=== PATIENT | male | born 1985 | race African-American/Black ===

== ENCOUNTER 2016-11-20 14:19 | Inpatient (IN) | payer OTHER ==
[2016-11-20 16:15] VITALS: BMI 27.1
--- NOTE | 2016-11-20 17:31 | HP ---
CIWA Score - CIWA Score Nausea/Vomitin-Mild Nausea/No Vomiting Muscle Tremors: 4-Moderate,w/Arms Extend Anxiety: 4-Mod. Anxious/Guarded Agitation: 4-Moderately Restless Paroxysmal Sweats: 2 Orientation: 0-Oriented Tacttile Disturbances: 0-None Auditory Disturbances: 0-None Visual Disturbances: 0-None Headache: 3-Moderate CIWA-Ar Total Score: 18 Admission ROS BHS - HPI Chief Complaint: withdrawal sx Allergies/Adverse Reactions: Allergies Allergy/AdvReac Type Severity Reaction Status Date / Time No Known Allergies Allergy Verified 11/20/16 17:29 History of Present Illness: 31years old male with long history of alcohol nicotine dependence denies medical issue had depression feel hoplessness helplessness overwhelmed is admitted to detox Exam Limitations: No Limitations - Ebola screening Have you traveled outside of the country in the last 21 days: No Have you had contact with anyone from an Ebola affected area: No Have you been sick,other than usual withdrawal symptoms: No Do you have a fever: No - Review of Systems Constitutional: Chills, Loss of Appetite, Changes in sleep, Unintentional Wgt. Loss EENT: reports: No Symptoms Reported Respiratory: reports: No Symptoms reported Cardiac: reports: No Symptoms Reported GI: reports: Poor Appetite, Poor Fluid Intake, Abdominal cramping : reports: No Symptoms Reported Musculoskeletal: reports: No Symptoms Reported Integumentary: reports: No Symptoms Reported Neuro: reports: Tremors Endocrine: reports: No Symptoms Reported Hematology: reports: No Symptoms Reported Psychiatric: reports: Judgement Intact, Orientated x3, Depressed Other Systems: Reviewed and Negative Patient History - Patient Medical History Hx Anemia: No Hx Asthma: No Hx Chronic Obstructive Pulmonary Disease (COPD): No Hx Cancer: No Hx Cardiac Disorders: No Hx Congestive Heart Failure: No Hx Hypertension: No Hx Hypercholesterolemia: No Hx Pacemaker: No HX Cerebrovascular Accident: No Hx Seizures: No Hx Dementia: No Hx Diabetes: No Hx Gastrointestinal Disorders: No Hx Liver Disease: No Hx Genitourinary Disorders: No Hx Sexually Transmitted Disorders: No Hx Renal Disease (ESRD): No Hx Thyroid Disease: No Hx Human Immunodeficiency Virus (HIV): No Hx Hepatitis C: No Hx Depression: Yes Hx Suicide Attempt: No Hx Bipolar Disorder: No Hx Schizophrenia: No - Patient Surgical History Past Surgical History: No - PPD History Previous Implant?: Yes Documented Results: Negative w/o proof Implanted On Prior [facility] Admission?: No PPD to be Administered?: Yes - Smoking Cessation Smoking history: Current every day smoker Have you smoked in the past 12 months: Yes Aproximately how many cigarettes per day: 10 Cigars Per Day: 0 Hx Chewing Tobacco Use: No Initiated information on smoking cessation: Yes 'Breaking Loose' booklet given: 11/20/16 - Substance & Tx. History Hx Alcohol Use: Yes Hx Substance Use: Yes Substance Use Type: Alcohol, Cocaine, Marijuana Hx Substance Use Treatment: Yes - Substances Abused Alcohol Route: Oral Frequency: Daily Amount used: pint volka + 6 pack 24oz x 2 Age of first use: 16 Date of Last Use: 11/20/16 Family Disease History - Family Disease History Family Disease History: [place]: Grandparent (), Other: Mother (lupus) Admission Physical Exam BHS - Vital Signs Vital Signs: Vital Signs - 24 hr 11/20/16 16:10 Temperature 97.2 F L Pulse Rate 70 Respiratory 18 Rate Blood Pressure 124/83 - Physical General Appearance: Yes: Appropriately Dressed, Moderate Distress, Alcohol on Breath, Tremorous, Irritable, Sweating, Anxious HEENTM: Yes: Hearing grossly Normal, Normal ENT Inspection, Normocephalic, Normal Voice Respiratory: Yes: Chest Non-Tender, Lungs Clear, Normal Breath Sounds, No Respiratory Distress, No Accessory Muscle Use Neck: Yes: Supple, Trachea in good position Breast: Yes: Breasts Symetrical Cardiology: Yes: Regular Rhythm, Regular Rate, S1, S2 Abdominal: Yes: Non Tender, Soft Genitourinary: Yes: Within Normal Limits Back: Yes: Normal Inspection Musculoskeletal: Yes: full range of Motion, Gait Steady Extremities: Yes: Normal Inspection, Normal Range of Motion, Non-Tender, Tremors Neurological: Yes: Fully Oriented, Alert, Motor Strength 5/5, Normal Response, Depressed Affect Integumentary: Yes: Warm, Moist Lymphatic: Yes: Within Normal Limits - Diagnostic (1) Alcohol dependence with uncomplicated withdrawal Current Visit: Yes Status: Acute (2) Depression (emotion) Current Visit: Yes Status: Suspected Qualifiers: Depression Type: dysthymia Qualified Code(s): F34.1 - Dysthymic disorder Comment: insomnia (3) Nicotine dependence Current Visit: Yes Status: Acute Qualifiers: Nicotine product type: cigarettes Substance use status: uncomplicated Qualified Code(s): F17.210 - Nicotine dependence, cigarettes, uncomplicated (4) Weight loss Current Visit: Yes Status: Acute (5) Cocaine dependence, uncomplicated Current Visit: Yes Status: Chronic (6) Cannabis dependence, uncomplicated Current Visit: Yes Status: Chronic Cleared for Admission [facility] - Detox or Rehab [facility] Level of Care: Medically Managed Detox Regimen/Protocol: Librium [facility] Breath Alcohol Content Breath Alcohol Content: 0.097 Urine Drug Screen - Results Drug Screen Negative: No Urine Drug Screen Results: THC-Marijuana, ROSANA-Cocaine
[2016-11-20] MEDS ORDERED: P-EPHED 60MG/TRIPROLIDI 2.5MG TABLET PO PRN (17:34)
[2016-11-20] MEDS ORDERED: IBUPROFEN 400 MG TABLET (FP) PO PRN (17:34)
[2016-11-20] MEDS ORDERED: hydrOXYzine PAMOATE 50 MG CAPSULE (FP) PO PRN (17:34)
[2016-11-20] MEDS ORDERED: ACETAMINOPHEN 325 MG TABLET (FP) PO PRN (17:34)
[2016-11-20] MEDS ORDERED: NICOTINE POLACRILEX 2 MG GUM BUC PRN (17:34)
[2016-11-20] MEDS ORDERED: MAG HYDROX/AL HYDROX/SIMETH 30 ML UNIT-DOSE CUP PO PRN (17:34)
[2016-11-20] MEDS ORDERED: MAGNESIUM HYDROX 2400MG/30ML ORAL SUSPENSION 30 ML CUP PO PRN (17:34)
[2016-11-20] MEDS ORDERED: LOPERAMIDE HCL 2 MG CAPSULE PO PRN (17:34)
[2016-11-20] MEDS ORDERED: MENTHOL/PHENOL 1 EACH UD MM PRN (17:34)
[2016-11-20] MEDS ORDERED: guaiFENesin/D-METHORPHAN HB 10 ML UNIT-DOSE CUPS PO PRN (17:34)
[2016-11-20] MEDS ORDERED: MAGNESIUM CITRATE 300 ML BOTTLE PO PRN (17:34)
[2016-11-20] MEDS ORDERED: chlordiazePOXIDE HCL 25 MG CAPSULE PO PRN (17:34)
[2016-11-20] MEDS ORDERED: chlordiazePOXIDE HCL 25 MG CAPSULE PO ONE (18:15)
[2016-11-20] MEDS ORDERED: diphenhydrAMINE HCL 50 MG CAPSULE PO PRN (22:00)
[2016-11-20] MEDS: THIAMINE HCL 100 MG TABLET (FP) PO SCH (22:38)
[2016-11-20] MEDS: chlordiazePOXIDE HCL 25 MG CAPSULE PO SCH (22:38)
[2016-11-21] MEDS: chlordiazePOXIDE HCL 25 MG CAPSULE PO SCH ×4 (05:33→22:33)
[2016-11-21] MEDS: CYCLOBENZAPRINE HCL 10 MG TABLET (FP) PO PRN ×2 (05:33→22:35)
--- NOTE | 2016-11-21 09:30 | PN ---
[facility] CIWA - CIWA Score Nausea/Vomitin-No Nausea/No Vomiting Muscle Tremors: 4-Moderate,w/Arms Extend Anxiety: 4-Mod. Anxious/Guarded Agitation: 4-Moderately Restless Paroxysmal Sweats: 1-Minimal Palms Moist Orientation: 0-Oriented Tacttile Disturbances: 3-Moderate Itch/Numb/Burn Auditory Disturbances: 0-None Visual Disturbances: 0-None Headache: 0-None Present CIWA-Ar Total Score: 16 BHS Progress Note (SOAP) Subjective: ANXIETY,SWEATS, FATIGUE. Objective: 11/21/16 09:29 Vital Signs Temperature 96.8 F L 11/21/16 06:30 Pulse Rate 56 L 11/21/16 06:30 Respiratory Rate 16 11/21/16 06:30 Blood Pressure 104/71 11/21/16 06:30 O2 Sat by Pulse Oximetry (%) LABS PENDING Assessment: 11/21/16 09:29 WITHDRAWAL SX Plan: CONTINUE DETOX
[2016-11-21 10:03] LABS: MCH 30.4 pg (25.7-33.7); MCHC 33.2 g/dl (32.0-35.9); MEAN CELL VOLUME 91.5 fl (80-96); MEAN PLT VOLUME 7.5 fl (7.5-11.1); PLATELET COUNT 285 K/MM3 (134-434); RDW 13.4 % (11.9-15.9); WHITE BLOOD COUNT 7.1 K/mm3 (4.0-10.0)
[2016-11-21] MEDS: PRENATAL VITAMINS W/ FOLIC ACID TABLET (FP) PO SCH (10:13)
[2016-11-21] MEDS: NICOTINE 14 MG/24 HOURS TOPICAL PATCH TD SCH (10:14)
--- NOTE | 2016-11-21 10:21 | EKG ---
Test Reason : Blood Pressure : / mmHG Vent. Rate : 061 BPM Atrial Rate : 061 BPM P-R Int : 172 ms QRS Dur : 088 ms QT Int : 404 ms P-R-T Axes : 064 035 040 degrees QTc Int : 406 ms NORMAL SINUS RHYTHM NORMAL ECG NO PREVIOUS ECGS AVAILABLE Confirmed by COLTON VALENCIA, OYLANDA ([id number]) on 11/21/2016 10:20:36 AM Referred By: Maxim Dale Confirmed By:YOLANDA SEGURA MD
[2016-11-21 10:27] LABS: ALBUMIN 4.2 g/dl (3.4-5.0); ALK PHOS 55 U/L (45-117); ANION GAP 8 (8-16); BILIRUBIN,TOTAL 0.5 mg/dL (0.2-1.0); CALCIUM 8.8 mg/dL (8.5-10.1); CO2 25 mmol/L (21-32); CREATININE 1.1 mg/dL (0.7-1.3); GLUCOSE,RANDOM 96 mg/dL (74-106); SGOT/AST 13 U/L (15-37); SGPT/ALT 25 U/L (12-78); TOT PROT 7.2 g/dl (6.4-8.2)
--- NOTE | 2016-11-21 12:54 | CONSULT ---
[facility] Psychiatric Consult - Data Date of interview: 11/21/16 Admission source: [facility] Identifying data: Readmission to [facility] for this 31 y/o AA male seeking detox treatment on for alcohol,cocaine and marijuana dependence.Patient is (living with ),a father of three,currently unemployed (just lost employment). Substance Abuse History: - Smoking Cessation. Smoking history: Current every day smoker. Have you smoked in the past 12 months: Yes. Aproximately how many cigarettes per day: 10. Cigars Per Day: 0. Hx Chewing Tobacco Use: No. Initiated information on smoking cessation: Yes. 'Breaking Loose' booklet given : 11/20/16. - Substance & Tx. History. Hx Alcohol Use: Yes. Hx Substance Use : Yes. Substance Use Type: Alcohol, Cocaine, Marijuana. Hx Substance Use Treatment: Yes. Confirmed by patient. Medical History: No reported medical problems. Psychiatric History: No reported history of psychiatric hospitalizations. Physical/Sexual Abuse/Trauma History: Patient denies. Additional Comment: Urine Drug Screen Results: THC-Marijuana, ROSANA-Cocaine.Noted. Mental Status Exam - Mental Status Exam Alert and Oriented to: Time, Place, Person Cognitive Function: Good Patient Appearance: Well Groomed Mood: Hopeful, Euthymic Affect: Appropriate, Normal Range Patient Behavior: Fatigued, Talkative, Appropriate, Cooperative Speech Pattern: Clear, Appropriate Voice Loudness: Normal Thought Process: Goal Oriented Thought Disorder: Not Present Hallucinations: Denies Suicidal Ideation: Denies Homicidal Ideation: Denies Insight/Judgement: Poor Sleep: Poorly, Difficulty falling asleep Appetite: Good Muscle strength/Tone: Normal Gait/Station: Normal Psychiatric Findings - Problem List ([place] 1, 2,3) (1) Alcohol dependence with uncomplicated withdrawal Current Visit: Yes Status: Acute (2) Nicotine dependence Current Visit: Yes Status: Acute Qualifiers: Nicotine product type: cigarettes Substance use status: uncomplicated Qualified Code(s): F17.210 - Nicotine dependence, cigarettes, uncomplicated (3) Cannabis dependence, uncomplicated Current Visit: Yes Status: Acute (4) Cocaine dependence, uncomplicated Current Visit: Yes Status: Acute (5) Substance induced mood disorder Current Visit: Yes Status: Acute (6) Insomnia Current Visit: Yes Status: Acute - Initial Treatment Plan Initial Treatment Plan: Psychoeducation.Detoxification.Zolpidem 5 mg po hs prn to address insomnia.Side effects/benefits discussed.Patient agrees with plan.Observation.
[2016-11-21 14:19] LABS: URINE APPEARANCE CLEAR; URINE BILIRUBIN NEGATIVE (NEGATIVE); URINE BLOOD NEGATIVE (NEGATIVE); URINE COLOR YELLOW; URINE GLUCOSE (UA) NEGATIVE (NEGATIVE); URINE KETONE NEGATIVE (NEGATIVE); URINE LEUK ESTERASE NEGATIVE (NEGATIVE); URINE NITRITE NEGATIVE (NEGATIVE); URINE PROTEIN NEGATIVE (NEGATIVE); URINE UROBILINOGEN 0.2 E.U/dl E.U./dl (0.2-1.0)
[2016-11-21] MEDS ORDERED: ZOLPIDEM TARTRATE 5 MG TABLET PO PRN (22:00)
[2016-11-21] MEDS: THIAMINE HCL 100 MG TABLET (FP) PO SCH (22:33)
[2016-11-22] MEDS: chlordiazePOXIDE HCL 25 MG CAPSULE PO SCH ×2 (05:44→10:25)
[2016-11-22] MEDS: CYCLOBENZAPRINE HCL 10 MG TABLET (FP) PO PRN (05:45)
[2016-11-22] MEDS: PRENATAL VITAMINS W/ FOLIC ACID TABLET (FP) PO SCH (10:25)
[2016-11-22] MEDS: NICOTINE 14 MG/24 HOURS TOPICAL PATCH TD SCH (10:25)
[2016-11-22] MEDS ORDERED: NICOTINE 21 MG/24 HOURS TOPICAL PATCH TD SCH (10:31)
--- NOTE | 2016-11-22 10:47 | PN ---
[facility] CIWA - CIWA Score Nausea/Vomitin-No Nausea/No Vomiting Muscle Tremors: 4-Moderate,w/Arms Extend Anxiety: 4-Mod. Anxious/Guarded Agitation: 4-Moderately Restless Paroxysmal Sweats: 1-Minimal Palms Moist Orientation: 0-Oriented Tacttile Disturbances: 3-Moderate Itch/Numb/Burn Auditory Disturbances: 0-None Visual Disturbances: 0-None Headache: 0-None Present CIWA-Ar Total Score: 16 BHS Progress Note (SOAP) Subjective: ANXIETY,LOWER BACK PAIN,SWEATS. Objective: 11/22/16 10:46 Vital Signs Temperature 96.0 F L 11/22/16 10:31 Pulse Rate 57 L 11/22/16 10:31 Respiratory Rate 18 11/22/16 10:31 Blood Pressure 105/72 11/22/16 10:31 O2 Sat by Pulse Oximetry (%) Laboratory Last Values WBC 7.1 K/mm3 (4.0-10.0) 11/21/16 07:30 RBC 4.83 M/mm3 (4.00-5.60) 11/21/16 07:30 Hgb 14.7 GM/dL (11.7-16.9) 11/21/16 07:30 Hct 44.2 % (35.4-49) 11/21/16 07:30 MCV 91.5 fl (80-96) 11/21/16 07:30 MCHC 33.2 g/dl (32.0-35.9) 11/21/16 07:30 RDW 13.4 % (11.9-15.9) 11/21/16 07:30 Plt Count 285 K/MM3 (134-434) 11/21/16 07:30 MPV 7.5 fl (7.5-11.1) 11/21/16 07:30 Sodium 138 mmol/L (136-145) 11/21/16 07:30 Potassium 4.4 mmol/L (3.5-5.1) 11/21/16 07:30 Chloride 105 mmol/L (98-107) 11/21/16 07:30 Carbon Dioxide 25 mmol/L (21-32) 11/21/16 07:30 Anion Gap 8 (8-16) 11/21/16 07:30 BUN 14 mg/dL (7-18) 11/21/16 07:30 Creatinine 1.1 mg/dL (0.7-1.3) 11/21/16 07:30 Creat Clearance w eGFR > 60 (>60) 11/21/16 07:30 Random Glucose 96 mg/dL (74-106) 11/21/16 07:30 Calcium 8.8 mg/dL (8.5-10.1) 11/21/16 07:30 Total Bilirubin 0.5 mg/dL (0.2-1.0) 11/21/16 07:30 AST 13 U/L (15-37) L 11/21/16 07:30 ALT 25 U/L (12-78) 11/21/16 07:30 Alkaline Phosphatase 55 U/L (45-117) 11/21/16 07:30 Total Protein 7.2 g/dl (6.4-8.2) 11/21/16 07:30 Albumin 4.2 g/dl (3.4-5.0) 11/21/16 07:30 Urine Color Yellow 11/21/16 12:00 Urine Appearance Clear 11/21/16 12:00 Urine pH 6.0 (5.0-8.0) 11/21/16 12:00 Ur Specific [place] >= 1.030 (1.001-1.035) 11/21/16 12:00 Urine Protein Negative (NEGATIVE) 11/21/16 12:00 Urine Glucose (UA) Negative (NEGATIVE) 11/21/16 12:00 Urine Ketones Negative (NEGATIVE) 11/21/16 12:00 Urine Blood Negative (NEGATIVE) 11/21/16 12:00 Urine Nitrite Negative (NEGATIVE) 11/21/16 12:00 Urine Bilirubin Negative (NEGATIVE) 11/21/16 12:00 Urine Urobilinogen 0.2 e.u/dl E.U./dl (0.2-1.0) 11/21/16 12:00 Ur Leukocyte Esterase Negative (NEGATIVE) 11/21/16 12:00 RPR Titer Nonreactive (NONREACTIVE) 11/21/16 07:30 Hepatitis C Antibody <0.1 s/co ratio (0.0-0.9) 11/21/16 07:30 Assessment: 11/22/16 10:47 WITHDRAWAL SX Plan: CONTINUE DETOX
[2016-11-22] MEDS ORDERED: CYCLOBENZAPRINE HCL 10 MG TABLET (FP) PO SCH (14:00)
[2016-11-22 14:17] VITALS: BP 121/67; PULSE 86; TEMP 96.3
--- NOTE | 2016-11-22 15:07 | DS ---
[facility] Detox Discharge Summary Admission Date: 11/20/16 Discharge Date: 11/22/16 - History Present History: Alcohol Dependence, Cannabis Dependence, Cocaine Dependence Additional Comments: PT DECLINED TO COMPLETE DETOX STATING "IT IS TOO BORING HERE. I WANNA GO TO OUTPT PROGRAM'. PT WAS ENCOURAGED TO COMPLETE MEDICALLY MANAGED DETOX AND THEN GO TO AFTERCARE HE WISHES BUT HE REFUSED TO COMPLETE THIS PHASE. MEANWHILE PT HAS BEEN SET UP AND SCHEDULED BY HIS COUNSELOR TO START AT [facility] ON Saturday11/27/16. PT SIGNED OUT AMA TO GO HOME TODAY AND FOLLOW UP AT [facility] ON SATURDAY. ALERT O X 3. NAD. Pertinent Past History: INSOMNIA DEPRESSION - Physical Exam Results Vital Signs: Vital Signs Temperature 96.3 F L 11/22/16 14:16 Pulse Rate 86 11/22/16 14:16 Respiratory Rate 20 11/22/16 14:16 Blood Pressure 121/67 11/22/16 14:16 O2 Sat by Pulse Oximetry (%) Pertinent Admission Physical Exam Findings: WITHDRAWAL SX - Treatment Hospital Course: Discharged Condition Good, Rehab Referral Accepted Patient has Accepted a Rehab Referral to: [facility] - Medication Discharge Medications: Ambulatory Orders NK [No Known Home Medication] 11/20/16 - Diagnosis (1) Alcohol dependence with uncomplicated withdrawal Status: Acute (2) Cannabis dependence, uncomplicated Status: Acute (3) Cocaine dependence, uncomplicated Status: Acute (4) Nicotine dependence Status: Acute Qualifiers: Nicotine product type: cigarettes Substance use status: uncomplicated Qualified Code(s): F17.210 - Nicotine dependence, cigarettes, uncomplicated - AMA Did Patient Leave Against Medical Advice: Yes (AMA)
[2016-11-22] MEDS ORDERED: NICOTINE POLACRILEX 4 MG GUM BUC PRN (17:34)
[2016-11-22] MEDS ORDERED: chlordiazePOXIDE 5 MG CAPSULE PO SCH (23:00)
[2016-11-23] MEDS ORDERED: chlordiazePOXIDE HCL 10 MG CAPSULE PO SCH (23:00)
== END 2016-11-22 14:44 | disposition left against medical advice (07) | DRG 770 ==
LOC: YASAS 14:19 → Y3N 17:53
PROVIDERS: ADMIT Internal Medicine; ATTEND Internal Medicine
PROC: HZ2ZZZZ Detoxification Services for Substance Abuse Treatment (ICD-10-PCS; principal; 2016-11-20)
DX: F10.230 Alcohol dependence with withdrawal, uncomplicated (principal); F14.20 Cocaine dependence, uncomplicated; F12.20 Cannabis dependence, uncomplicated; F17.210 Nicotine dependence, cigarettes, uncomplicated; F19.24 Other psychoactive substance dependence with psychoactive substance-induced mood disorder; F34.1 Dysthymic disorder; G47.00 Insomnia, unspecified
CPT/HCPCS: 36415; 80053; 81003; 85027; 86593; 86803; 93005; 93010